=== PATIENT | female | born 1980 ===

== ENCOUNTER → 2021-11-26 11:14 | Outpatient (CLI) | payer BC, SELFPAY ==
--- NOTE | ~2021-11-26 | US_ITS ---
EXAMINATION: US pelvic complete w TV DATE: 11/26/2021 11:39 INDICATION: Irregular periods Comparison:No prior studies for comparison. TECHNIQUE: Multiple transabdominal and endovaginal sonographic images of the pelvis performed. FINDINGS: The uterus measures 6.5 x 4.6 x 5.1 cm. There are uterine fibroids at the fundus measuring up to 1.8 cm in posteriorly measuring 1.2 cm. The endometrial complex measures 4 mm. The right ovary measures 1.7 x 1.8 x 1.5 cm and the left ovary measures 3.3 x 1.6 x 1.7 cm. There ar e small follicles in each ovary. Normal doppler signal in both ovaries. There is no free fluid in the pelvis. There are no abnormal masses seen on either side. IMPRESSION: 1. Fibroid uterus, largest located at the fundus measuring 1.8 x 1.5 x 1.5 cm. Reviewed, dictated and finalized at location A.
== END ==
DX: Z78.0 Asymptomatic menopausal state (principal); D25.9 Leiomyoma of uterus, unspecified; N92.4 Excessive bleeding in the premenopausal period
CPT/HCPCS: 76830; 76856